=== PATIENT | male | born 1975 | race Caucasian/White ===

== ENCOUNTER 2023-05-12 12:41 | Emergency (ER) | payer OTHER | END 2023-05-12 13:56 | disposition left against medical advice (07) | LOC: DL.ED 12:41 | DX: Z53.21 Procedure and treatment not carried out due to patient leaving prior to being seen by health care provider (principal) ==

== ENCOUNTER 2023-09-13 08:54 | Emergency (ER) | payer OTHER ==
[2023-09-13] MEDS ORDERED: Sodium Chloride 0.9% 1,000 ML IV ONE (09:33)
[2023-09-13] MEDS ORDERED: Ondansetron 4 MG/2 ML SDV IV ONE (09:33)
[2023-09-13] MEDS ORDERED: Codeine/Promethazine 10-6.25 MG/5 ML Syrup 5 ML UD Cup PO ONE (09:33)
[2023-09-13] MEDS ORDERED: Silver Nitrate Applicator Each TOP ONE (09:33)
[2023-09-13] MEDS ORDERED: Oxymetazoline 0.05% Nasal Spray 30 ML Bottle NAS ONE (09:34)
[2023-09-13] MEDS: Sodium Chloride 0.9% 10 ML Syringe FLUSH PRN ×2 (09:34→09:50)
[2023-09-13 09:38] LABS: BASOPHILS PERCENT AUTO 0.2 % (0.0-1.0); EOSINOPHILS PERCENT AUTO 1.1 % (1.0-3.0); HEMATOCRIT 35.6 % (40.0-54.0); HEMOGLOBIN 11.9 g/dL (14.0-18.0); LYMPHOCYTES PERCENT AUTO 5.9 % (20.5-50.1); MEAN CORPUSCULAR HEMOGLOBIN 31.2 pg (27.0-34.0); MEAN CORPUSCULAR HGB CONC 33.4 g/dL (33.0-35.0); MEAN CORPUSCULAR VOLUME 93.4 fL (80-100); NEUTROPHILS PERCENT AUTO 80.8 % (42.2-75.2); PLATELET COUNT,PLT 158 10^3/uL (150-450); RED BLOOD CELL COUNT 3.81 10^6/uL (4.6-6.2); WHITE BLOOD CELL COUNT,WBC 6.6 10^3/uL (5.0-10.0)
[2023-09-13 10:00] LABS: INR 1.1 (0.9-1.2); PROTHROMBIN TIME 10.9 SEC (9.0-12.0); PTT,PARTIAL THROMBOPLSTIN TIME 28.1 SEC (22.0-34.0)
[2023-09-13 10:03] LABS: ALBUMIN 3.3 g/dL (3.4-5.0); ANION GAP 14.2 mEq/L (7-13); BILIRUBIN TOTAL 0.7 mg/dL (0.2-1.0); BUN/CREATININE RATIO 14.5 (No establ ref range); CALCIUM 9.2 mg/dL (8.5-10.1); CREATININE 0.83 mg/dL (0.70-1.30); EST CRCL DRUG DOSING (CG) 118.17 mL/min; POTASSIUM,K 3.2 mmol/L (3.5-5.1); PROTEIN TOTAL,TP 7.4 g/dL (6.4-8.2)
[2023-09-13 10:04] LABS: A/G RATIO 0.8
== END 2023-09-13 11:15 | disposition home or self-care (01) ==
LOC: DL.ED 08:54
DX: R04.0 Epistaxis (principal); J11.1 Influenza due to unidentified influenza virus with other respiratory manifestations; Z79.82 Long term (current) use of aspirin; Z79.899 Other long term (current) drug therapy
CPT/HCPCS: 30901; 36415; 71045; 80053; 85025; 85610; 85730; 96361; 96374; 99283; A9270; J2405; J7030; J3490